=== PATIENT | female | born 1965 | race Caucasian/White ===

== ENCOUNTER 2018-06-29 09:58 | Emergency (ER) | payer OTHER ==
[2018-06-29 10:11] VITALS: TEMP 97.4; BMI 29.0
[2018-06-29] MEDS ORDERED: ACETAMINOPHEN 325 MG TABLET (FP) PO ONE (10:38)
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
[2018-06-29] MEDS ORDERED: ACETAMINOPHEN 325 MG TABLET (FP) ONE (11:46)
[2018-06-29 14:39] VITALS: BP 138/86; PULSE 67
== END 2018-06-29 14:39 | disposition home or self-care (01) ==
LOC: JER 09:58
DX: S13.4XXA Sprain of ligaments of cervical spine, initial encounter (principal); V43.62XA Car passenger injured in collision with other type car in traffic accident, initial encounter; Y92.488 Other paved roadways as the place of occurrence of the external cause; Y93.89 Activity, other specified; Y99.8 Other external cause status
CPT/HCPCS: 70450-TC; 72125-TC; 73030-TC-RT-FY; 99282-25

== ENCOUNTER 2020-07-30 10:06 | Day surgery (SDC) | payer OTHER ==
[2020-07-29 18:04] VITALS: BMI 27.8
[2020-07-30] MEDS ORDERED: LIDOCAINE HCL/PF 2% SDV 5ML VIAL ONE ×2 (10:12→10:41)
[2020-07-30] MEDS ORDERED: PROPOFOL 20 ML ONE (10:12)
[2020-07-30 12:09] VITALS: TEMP 97.8
[2020-07-30 13:20] VITALS: BP 124/78; PULSE 78
== END 2020-07-30 13:10 | disposition home or self-care (01) ==
LOC: FASU 10:06
PROVIDERS: ATTEND Internal Medicine Gastroenterology
PROC: 0DB68ZX Excision of Stomach, Via Natural or Artificial Opening Endoscopic, Diagnostic (ICD-10-PCS; 2020-07-30)
PROC: 0DB38ZX Excision of Lower Esophagus, Via Natural or Artificial Opening Endoscopic, Diagnostic (ICD-10-PCS; 2020-07-30)
PROC: 0DB98ZX Excision of Duodenum, Via Natural or Artificial Opening Endoscopic, Diagnostic (ICD-10-PCS; principal; 2020-07-30 11:41)
DX: K29.70 Gastritis, unspecified, without bleeding (principal); K21.00 Gastro-esophageal reflux disease with esophagitis, without bleeding; K29.50 Unspecified chronic gastritis without bleeding
CPT/HCPCS: 88305-TC; 88342-TC